=== PATIENT | female | born 1990 | race American Indian/Alaskan Native ===

== ENCOUNTER 2020-05-28 18:48 | Emergency (ER) | payer OTHER ==
[2020-05-28] MEDS ORDERED: IBUPROFEN 800 MG TAB PO ONE (19:29)
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
[2020-05-28 19:53] VITALS: BP 114/93
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
== END 2020-05-28 21:15 | disposition home or self-care (01) ==
LOC: ED 18:48
DX: S86.912A Strain of unspecified muscle(s) and tendon(s) at lower leg level, left leg, initial encounter (principal); S86.911A Strain of unspecified muscle(s) and tendon(s) at lower leg level, right leg, initial encounter; S00.81XA Abrasion of other part of head, initial encounter; Z79.899 Other long term (current) drug therapy; Z91.013 Allergy to seafood; Y04.2XXA Assault by strike against or bumped into by another person, initial encounter; Y93.89 Activity, other specified; Y92.89 Other specified places as the place of occurrence of the external cause; Y99.8 Other external cause status